=== PATIENT | female | born 1955 | race Caucasian/White ===

== ENCOUNTER 2017-03-06 01:05 | Emergency (ER) | payer BC ==
[~2017-03-06] VITALS: Ht 157.5 cm; Wt 117.9 kg
[~2017-03-06 01:05] MED LIST: ACETAMINOPHEN PO; ADVAIR INH; ASPIRIN PO; ATACAND PO; CALCIUM 500 +1 EAC2 PO; CARVEDILOL3.125 MG PO; COREG3.125 MG PO; EFFEXOR XR150 MG PO; EFFEXOR37.5 MG PO; HYDROCHLOROTH12.5 MG PO; LASIX PO; LEXAPRO PO; NORVASC PO; PERCOCET5/325 PO; PREDNISONE PO; PROAIR HFA8.5 GM INH; PROTONIX PO; SINGULAIR4 MG PO; SYMBICORT 16010.2 GM INH; VITAMIN D1000 UNI1 PO
[2017-03-06] MEDS ORDERED: PREDNISONE PO (01:36)
== END 2017-03-06 01:37 | disposition home or self-care (01) ==
LOC: SED 01:05
DX: R21 Rash and other nonspecific skin eruption (principal); K21.9 Gastro-esophageal reflux disease without esophagitis; J44.9 Chronic obstructive pulmonary disease, unspecified; I10 Essential (primary) hypertension; F17.200 Nicotine dependence, unspecified, uncomplicated; Z88.8 Allergy status to other drugs, medicaments and biological substances; Z79.899 Other long term (current) drug therapy
CPT/HCPCS: 96372; 99282; J1040